=== PATIENT | female | born 1985 | race Caucasian/White ===

== ENCOUNTER 2021-01-22 10:34 | Emergency (ER) | payer OTHER ==
[~2021-01-22] VITALS: Ht 162.6 cm; Wt 86.2 kg
[2021-01-22] MEDS ORDERED: HYDROCHLOROTHIA25 M1 PO (10:51)
[2021-01-22] MEDS ORDERED: ULTRAM 50MG TAB50 MG PO (11:24)
[2021-01-22] MEDS ORDERED: PENICILLIN VK500 MG PO (11:24)
[2021-01-22 12:18] VITALS: BP 162/116
== END 2021-01-22 12:16 | disposition home or self-care (01) ==
LOC: ER 10:34
DX: K03.81 Cracked tooth (principal)